=== PATIENT | female | born 1980 | race Caucasian/White ===

== ENCOUNTER 2019-08-06 14:39 | Observation (INO) ==
[2019-08-06] MEDS ORDERED: GI Cocktail 40 ML EACH PO ONE (15:09)
[2019-08-06] MEDS ORDERED: Ondansetron 4 MG/2 ML VIAL IVP ONE (16:29)
[2019-08-06 16:54] LABS: Basophils % 0.3 %; Eosinophils % 0.4 %; Hemoglobin 15.7 g/dL (11.5-15.4); Immature Granulocytes % 0.1 % (0-4); Lymphocytes # 1.1 K/mcL (0.6-4.6); Lymphocytes % 15.4 %; Mean Corpuscular HGB Conc 33.4 g/dL (31.6-35.5); Mean Corpuscular Hemoglobin 29.5 pg (28.0-33.3); Mean Corpuscular Volume 88.3 fL (83.0-100.0); Mean Platelet Volume 10.1 fL (9.4-12.4); Monocytes # 0.4 K/mcL (0.0-1.3); Monocytes % 5.4 %; Neutrophils # 5.3 K/mcL (1.6-8.9); Platelet Count 201 K/mcL (140-400); Red Blood Count 5.32 M/mcL (3.82-4.97); Red Cell Distribution Width 12.4 % (11.5-14.5); Segmented Neutrophils % 78.4 %; White Blood Count 6.8 K/mcL (4.3-11.1)
[2019-08-06] MEDS ORDERED: Naloxone 0.4 MG/ML INJ IVP PRN (17:04)
[2019-08-06] MEDS ORDERED: Ondansetron 4 MG/2 ML VIAL IVP PRN (17:04)
[2019-08-06] MEDS ORDERED: Pantoprazole 40 MG VIAL IVP ONE (17:26)
[2019-08-06 17:27] LABS: BUN/Creatinine Ratio 14 (6-26); Blood Urea Nitrogen 10 mg/dL (6-20); Calcium 9.8 mg/dL (8.6-10.3); Carbon Dioxide 26 mEq/L (23-29); Chloride 106 mEq/L (98-107); Glucose 89 mg/dL (70-105); Osmolality,Calculated 291 (280-300); Potassium 4.3 mEq/L (3.5-5.1); Sodium 141 mEq/L (136-145); eGFR For African Americans > 60 (> 60); eGFR For Non-African Americans > 60 (> 60)
[2019-08-06] MEDS: Ringers Solution, Lactated 1,000 ML IVC SCH (17:45)
[2019-08-06] MEDS: *HR* Heparin 5,000 UNIT/ML VIAL SQ SCH (18:31)
[2019-08-07] MEDS: Ringers Solution, Lactated 1,000 ML IVC SCH (04:38)
[2019-08-07] MEDS: *HR* Heparin 5,000 UNIT/ML VIAL SQ SCH ×2 (04:38→04:41)
[2019-08-07 05:34] LABS: Basophils % 0.3 %; Eosinophils # 0.1 K/mcL (0.0-0.6); Eosinophils % 0.8 %; Hematocrit 43.3 % (35.3-44.9); Hemoglobin 14.6 g/dL (11.5-15.4); Immature Granulocytes % 0.3 % (0-4); Lymphocytes # 1.5 K/mcL (0.6-4.6); Mean Corpuscular HGB Conc 33.7 g/dL (31.6-35.5); Mean Corpuscular Hemoglobin 29.3 pg (28.0-33.3); Mean Corpuscular Volume 86.8 fL (83.0-100.0); Mean Platelet Volume 9.8 fL (9.4-12.4); Monocytes # 0.5 K/mcL (0.0-1.3); Monocytes % 7.1 %; Neutrophils # 4.5 K/mcL (1.6-8.9); Platelet Count 201 K/mcL (140-400); Red Blood Count 4.99 M/mcL (3.82-4.97); Red Cell Distribution Width 12.6 % (11.5-14.5); Segmented Neutrophils % 68.5 %; White Blood Count 6.6 K/mcL (4.3-11.1)
[2019-08-07 06:11] LABS: Blood Urea Nitrogen 12 mg/dL (6-20); Calcium 9.3 mg/dL (8.6-10.3); Carbon Dioxide 24 mEq/L (23-29); Chloride 108 mEq/L (98-107); Glucose 84 mg/dL (70-105); Magnesium 2.4 mg/dL (1.6-2.6); Osmolality,Calculated 291 (280-300); Sodium 141 mEq/L (136-145)
[2019-08-07 06:38] LABS: BUN/Creatinine Ratio 15 (6-26); eGFR For African Americans > 60 (> 60); eGFR For Non-African Americans > 60 (> 60)
[2019-08-07] MEDS ORDERED: Pantoprazole 40 MG VIAL IVP ONE (08:27)
[2019-08-07] MEDS ORDERED: Tetracaine/Benzocaine/Butamben 1 SPRAY AEROSOL MM ONE (10:44)
[2019-08-07] MEDS ORDERED: 0.9 % Sodium Chloride 1,000 ML IVC SCH (10:45)
[2019-08-07] MEDS ORDERED: *HR* Propofol 200 MG/20 ML VIAL IVP ONE ×2 (11:36→11:44)
[2019-08-07 13:13] VITALS: BP 122/78
== END 2019-08-07 15:48 | disposition home or self-care (01) ==
LOC: EMEROOARM 14:39 → 3ANU 14:39 → SUATTDRO 17:08 → 3ANU 18:01
PROVIDERS: ADMIT Internal Medicine; ATTEND Internal Medicine
PROC: ENDOEDS (2019-08-07 10:45)